=== PATIENT | female | born 1995 | race Caucasian/White ===

== ENCOUNTER 2017-07-06 09:50 | Inpatient (IN) | payer OTHER ==
[~2017-07-06] VITALS: Ht 160 cm; Wt 86.2 kg
[2017-07-06] MEDS ORDERED: RINGERS SOLUTION,LACTATED 1,000 ML IV ONE (10:02)
[2017-07-06] MEDS ORDERED: CITRIC ACID/SODIUM CITRATE 30 ML SOLUTION UDCUP PO ONE (10:15)
[2017-07-06] MEDS ORDERED: METOCLOPRAMIDE HCL 5 MG/ML 2 ML VIAL IVP ONE (10:15)
[2017-07-06 10:38] LABS: BASOPHILS % (AUTO) 0.4 % (0.0-2.0); EOSINOPHILS % (AUTO) 0.8 % (1.0-6.0); HEMATOCRIT 36.2 % (36-46); HEMOGLOBIN 12.3 g/dL (12.0-16.0); LYMPHOCYTES # (AUTO) 2.1 K/uL (1.0-4.8); LYMPHOCYTES % (AUTO) 17.5 % (22.0-44.0); MEAN CORPUSCULAR HEMOGLOBIN 29.5 pg (26.0-34.0); MEAN CORPUSCULAR HGB CONC 33.9 G/dL (31.0-37.0); MEAN CORPUSCULAR VOLUME 87 fL (80-100); MONOCYTES # (AUTO) 0.6 K/uL (0.1-1.0); MONOCYTES % (AUTO) 5.2 % (2.0-9.0); NEUTROPHILS # (AUTO) 8.9 K/uL (1.8-7.7); NEUTROPHILS % (AUTO) 76.1 % (40.0-70.0); PLATELET COUNT (AUTO) 174 K/uL (150-450); RED BLOOD CELL COUNT(AUTO) 4.15 MIL/uL (4.00-5.20); RED CELL DISTRIBUTION WIDTH 14.1 % (11.5-14.5)
[2017-07-06] MEDS ORDERED: PNV11TAB PO (11:20)
[2017-07-06] MEDS ORDERED: MEPERIDINE-PF 25 MG/ML SYRINGE IVP PRN (13:15)
[2017-07-06] MEDS ORDERED: FentaNYL CITRATE-PF 100 MCG/2 ML VIAL IVP PRN ×2 (13:15)
[2017-07-06] MEDS ORDERED: NALBUPHINE HCL 10 MG/ML VIAL IVP PRN ×3 (13:15)
[2017-07-06] MEDS ORDERED: ONDANSETRON HCL 4 MG/2 ML VIAL IVP PRN ×2 (13:15)
[2017-07-06] MEDS ORDERED: ACETAMINOPHEN 1000 MG/ISO-OSM 100 ML IV ONE ×2 (13:15→13:58)
[2017-07-06] MEDS ORDERED: NALOXONE HCL 0.4 MG/ML VIAL IVP PRN (13:15)
[2017-07-06] MEDS ORDERED: MORPHINE SULFATE 10 MG/ML SYRINGE IVP PRN ×2 (13:15)
[2017-07-06] MEDS ORDERED: DiphenhydrAMINE HCL 50 MG/ML VIAL IVP PRN ×2 (13:15)
[2017-07-06] MEDS ORDERED: LANOLIN 7 GM OINTMENT TP PRN (14:00)
[2017-07-06] MEDS ORDERED: ACETAMINOPHEN/CODEINE 300-30 MG TABLET PO PRN ×2 (14:00)
[2017-07-06] MEDS: DEXTROSE 5%-0.45% SODIUM CHL 1,000 ML IV SCH ×3 (15:03→23:16)
[2017-07-06] MEDS ORDERED: MEASLES/MUMPS/RUBELLA VACCINE, LIVE 0.5 ML/VIAL SQ ONE (16:30)
[2017-07-06 17:57] LABS: APPEARANCE,URINE CLEAR (CLEAR); BILIRUBIN,URINE NEGATIVE (NEGATIVE); GLUCOSE, URINE (UA) NEGATIVE (NEGATIVE); KETONES,URINE >=80 mg/dL (NEGATIVE); LEUKOCYTE ESTERASE ,URINE NEGATIVE (NEGATIVE); NITRATE,URINE NEGATIVE (NEGATIVE); OCCULT BLOOD,URINE NEGATIVE (NEGATIVE); PH,URINE 7.5 (5.0-8.0); PROTEIN,URINE NEGATIVE (NEGATIVE); UROBILINOGEN,URINE 0.2 mg/dL (<=1.0)
[2017-07-06] MEDS ORDERED: OXYGEN THERAPY IH SCH ×3 (20:00)
[2017-07-06] MEDS: ACETAMINOPHEN 1000 MG/ISO-OSM 100 ML IV SCH (22:13)
[2017-07-07] MEDS: DEXTROSE 5%-0.45% SODIUM CHL 1,000 ML IV SCH (03:54)
[2017-07-07] MEDS: ACETAMINOPHEN 1000 MG/ISO-OSM 100 ML IV SCH (06:24)
[2017-07-07] MEDS: IBUPROFEN 800 MG TABLET PO SCH ×3 (07:01→18:52)
[2017-07-07] MEDS: MAGNESIUM HYDROXIDE SUSPENSION 30 ML UDCUP PO SCH ×2 (08:20→21:00)
[2017-07-08] MEDS: IBUPROFEN 800 MG TABLET PO SCH ×4 (00:40→18:36)
[2017-07-08] MEDS ORDERED: FentaNYL CITRATE-PF 100 MCG/2 ML VIAL IVP ONE (05:43)
[2017-07-08] MEDS ORDERED: MORPHINE SULFATE/PF 0.5 MG/ML 10 ML AMP IVP ONE (05:43)
[2017-07-08] MEDS: MAGNESIUM HYDROXIDE SUSPENSION 30 ML UDCUP PO SCH ×3 (09:00→21:46)
[2017-07-09] MEDS: IBUPROFEN 800 MG TABLET PO SCH ×2 (00:49→05:52)
== END 2017-07-09 10:35 | disposition home or self-care (01) | DRG 766 ==
LOC: OBSVTOIN 09:50 → 4S 09:50
PROVIDERS: ADMIT Obstetrics & Gynecology; ATTEND Obstetrics & Gynecology
PROC: 10D00Z1 Extraction of Products of Conception, Low, Open Approach (ICD-10-PCS; principal; 2017-07-06)
DX: O36.63X0 Maternal care for excessive fetal growth, third trimester, not applicable or unspecified (principal); O75.89 Other specified complications of labor and delivery; Z37.0 Single live birth; Z3A.39 39 weeks gestation of pregnancy
CPT/HCPCS: 86850; 86900; 86901; 87081; 90707; J0131; J2274; J2765; J3010; J7120